=== PATIENT | female | born 1950 | race Caucasian/White ===

== ENCOUNTER 2017-01-14 13:42 | Emergency (ER) | payer MEDICAID ==
[~2017-01-14] VITALS: Ht 157.5 cm; Wt 88.3 kg
[~2017-01-14 13:42] MED LIST: ADULT ASA81 M1 OR; ANTIVERT PO; BACTRIM DS1 TAB PO; CADUET10 MG/20 M OR; CELEBREX200 MG OR; CELEBREX200 MG PO; CIPROFLOXACN500 MG PO; CLONIDINE0.1 MG PO; LISINOPRIL10 MG PO; LISINOPRIL20 MG PO; MELOXICAM15 MG PO; METRONIDAZOL500 MG PO; MIRALAX3350 N1 PO; NAPROSYN500 MG PO; NAPROXEN250 MG PO; PREVACID30 M1 OR; PROTONIX40 M2 PO; SIMVASTATIN20 MG PO; TRAMADOL HCL50 MG PO; ULTRAM50 M1 PO; ULTRAM50 MG OR; VICODIN HP1 TA1 PO; XANAX0.25 MG PO; ZITHROMAX250 MG PO; ZOFRAN ODT8 MG PO
[2017-01-14] MEDS ORDERED: AMLODIPINE BESYL5 MG PO (14:38)
[2017-01-14] MEDS ORDERED: ATENOLOL50 MG PO (14:38)
[2017-01-14] MEDS ORDERED: LEVOTHYROXINE200 MCG PO (14:39)
[2017-01-14] MEDS ORDERED: RANITIDINE150 M1 PO (14:39)
[2017-01-14] MEDS ORDERED: ADLT ASA LOW81 MG PO (14:40)
[2017-01-14] MEDS ORDERED: PREMARIN0.3 MG PO (14:43)
[2017-01-14] MEDS ORDERED: SIMVASTATIN20 MG PO (14:44)
[2017-01-14 14:59] LABS: URINE BILIRUBIN - DIPSTICK NEGATIVE (NEGATIVE); URINE BLOOD DIPSTICK NEGATIVE (NEGATIVE); URINE COLOR YELLOW; URINE GLUCOSE - DIPSTICK NEGATIVE (NEGATIVE); URINE KETONE NEGATIVE (NEGATIVE); URINE NITRITE - DIPSTICK NEGATIVE (Negative); URINE PH 5.5 (4.5-8.0); URINE PROTEIN - DIPSTICK NEGATIVE (NEG-TRACE); URINE SPECIFIC GRAVITY <=1.005; URINE UROBILINOGEN - DIPSTICK 0.2 E.U./dL (0.2)
[2017-01-14 15:01] LABS: URINE LEUK ESTERASE SMALL (NEGATIVE)
[2017-01-14 15:02] LABS: URINE CLARITY TURBID
[2017-01-14 15:20] LABS: URINE SQUAMOUS EPITHELIAL CELL FEW EPI/hpf (0-FEW)
[2017-01-14] MEDS ORDERED: FLEXERIL PO (16:03)
[2017-01-14] MEDS ORDERED: ULTRAM50 M1 PO (16:03)
[2017-01-14] MEDS ORDERED: CIPROFLOXACN500 MG PO (16:03)
[2017-01-14 16:10] VITALS: BP 144/84
== END 2017-01-14 16:10 | disposition home or self-care (01) | DRG 563 ==
LOC: ED 13:42
PROVIDERS: Emergency Medicine
DX: S39.012A Strain of muscle, fascia and tendon of lower back, initial encounter (principal); M51.36 Other intervertebral disc degeneration, lumbar region

== ENCOUNTER 2017-03-18 11:42 | Observation (INO) | payer MEDICAID ==
[~2017-03-18] VITALS: Ht 157.5 cm; Wt 85.0 kg
[~2017-03-18 11:42] MED LIST changes: +ADLT ASA LOW81 MG PO; +AMLODIPINE BESYL5 MG PO; +ATENOLOL50 MG PO; +FLEXERIL PO; +LEVOTHYROXINE200 MCG PO; +PREMARIN0.3 MG PO; +RANITIDINE150 M1 PO
[2017-03-18] MEDS ORDERED: LIPITOR80 M1 PO (11:56)
[2017-03-18] MEDS ORDERED: MELOXICAM7.5 MG PO (11:57)
[2017-03-18] MEDS ORDERED: MAXZIDE-2537.5 MG/TA PO (11:58)
[2017-03-18 12:35] LABS: HEMATOCRIT 42.6 % (37.0-47.0); IMMATURE GRANULOCYTES 0.4 % (0.0-1.0); MEAN CORPUSCULAR HGB 29.9 pG CALC (26.0-32.0); MEAN CORPUSCULAR HGB CONC 32.9 g/L CALC (32.0-36.0); NEUT# 7.05 thou/uL (2.00-7.15); RED BLOOD COUNT 4.68 mill/uL (4.20-5.60); RED CELL DISTRI WIDTH 13.8 % (11.5-15.5)
[2017-03-18 12:47] LABS: ALBUMIN 4.4 g/dL (3.2-5.0); ALKALINE PHOSPHATASE 146 u/l (38-126); ANION GAP 17 (6-22 (CALC)); BILIRUBIN, TOTAL 0.7 mg/dL (0.0-1.4); BUN 36 mg/dL (8-23); BUN/CREATININE RATIO 17 (12-20 (CALC)); CALCIUM 9.3 mg/dL (8.4-10.2); CARBON DIOXIDE 22 mmol/l (22-30); CHLORIDE 103 mmol/l (95-108); CREATININE 2.1 mg/dL (0.5-1.0); GFR 24 ML/MIN (>=60 (CALC)); GFR FOR AFR.AMER. 29 ML/MIN (>=60 (CALC)); GLUCOSE 120 mg/dL (82-115); POTASSIUM 4.4 mmol/l (3.5-5.1); SGOT/AST 24 u/l (9-36); SGPT/ALT 37 u/l (11-66); SODIUM 137 mmol/l (137-146); TOTAL PROTEIN 7.6 g/dL (6.3-8.2)
[2017-03-18 12:58] LABS: MYOGLOBIN 92 ng/mL (0 - 62)
[2017-03-18 18:22] VITALS: BP 148/79
[2017-03-19 00:42] VITALS: BP 101/64
[2017-03-19 04:02] VITALS: BP 98/57
[2017-03-19 07:11] LABS: HEMATOCRIT 38.6 % (37.0-47.0); HEMOGLOBIN 12.7 g/dl (12.0-16.0); IMMATURE GRANULOCYTES 0.1 % (0.0-1.0); MEAN CELL VOLUME 90.8 fL CALC (80.0-100.0); MEAN CORPUSCULAR HGB 29.9 pG CALC (26.0-32.0); MEAN CORPUSCULAR HGB CONC 32.9 g/L CALC (32.0-36.0); NEUT# 4.52 thou/uL (2.00-7.15); RED BLOOD COUNT 4.25 mill/uL (4.20-5.60); RED CELL DISTRI WIDTH 13.7 % (11.5-15.5)
[2017-03-19 07:23] LABS: CALCIUM 8.8 mg/dL (8.4-10.2); CREATININE 1.2 mg/dL (0.5-1.0); MAGNESIUM 1.9 mg/dL (1.6-2.3)
[2017-03-19 08:22] VITALS: BP 106/70
[2017-03-19 11:16] VITALS: BP 100/60; BP 98/60
[2017-03-19 15:33] VITALS: BP 109/63
== END 2017-03-19 18:00 | disposition home or self-care (01) | DRG 684 ==
LOC: ENPENDDIS → ED 11:42 → ED-I 15:05 → ED 15:29 → MS2 15:30
PROVIDERS: Emergency Medicine; ADMIT Internal Medicine; ATTEND Internal Medicine
DX: N17.9 Acute kidney failure, unspecified (principal); I95.9 Hypotension, unspecified; I12.9 Hypertensive chronic kidney disease with stage 1 through stage 4 chronic kidney disease, or unspecified chronic kidney disease; N18.3 Chronic kidney disease, stage 3 (moderate); E03.9 Hypothyroidism, unspecified; E78.5 Hyperlipidemia, unspecified; R00.1 Bradycardia, unspecified; T39.395A Adverse effect of other nonsteroidal anti-inflammatory drugs [NSAID], initial encounter
CPT/HCPCS: G0378

== ENCOUNTER 2017-10-07 15:36 | Emergency (ER) | payer MEDICARE, MEDICAID ==
[~2017-10-07] VITALS: Ht 157.5 cm; Wt 88.0 kg
[~2017-10-07 15:36] MED LIST changes: +LIPITOR80 M1 PO; +MAXZIDE-2537.5 MG/TA PO; +MELOXICAM7.5 MG PO
[2017-10-07] MEDS ORDERED: CHERATUSSIN PO (16:54)
[2017-10-07] MEDS ORDERED: TRAZODONE100 MG PO (16:54)
[2017-10-07 17:01] VITALS: BP 138/70
== END 2017-10-07 17:00 | disposition home or self-care (01) ==
LOC: ED 15:36
DX: R05 Cough (principal); G47.00 Insomnia, unspecified; I10 Essential (primary) hypertension; E78.00 Pure hypercholesterolemia, unspecified

== ENCOUNTER 2017-12-11 14:59 | Emergency (ER) | payer MEDICARE, MEDICAID ==
[~2017-12-11] VITALS: Ht 157.5 cm; Wt 84.1 kg
[~2017-12-11 14:59] MED LIST changes: +CHERATUSSIN PO; +TRAZODONE100 MG PO
[2017-12-11 16:13] LABS: HEMATOCRIT 44.5 % (37.0-47.0); HEMOGLOBIN 14.6 g/dl (12.0-16.0); IMMATURE GRANULOCYTES 0.3 % (0.0-1.0); MEAN CELL VOLUME 88.8 fL CALC (80.0-100.0); MEAN CORPUSCULAR HGB 29.1 pG CALC (26.0-32.0); MEAN CORPUSCULAR HGB CONC 32.8 g/L CALC (32.0-36.0); NEUT# 4.65 thou/uL (2.00-7.15); RED BLOOD COUNT 5.01 mill/uL (4.20-5.60); RED CELL DISTRI WIDTH 13.9 % (11.5-15.5)
[2017-12-11 16:20] LABS: ALBUMIN 3.9 g/dL (3.2-5.0); ALKALINE PHOSPHATASE 165 u/l (38-126); ANION GAP 15 (6-22 (CALC)); BILIRUBIN, TOTAL 0.6 mg/dL (0.0-1.4); BUN 12 mg/dL (8-23); BUN/CREATININE RATIO 11 (12-20 (CALC)); CARBON DIOXIDE 25 mmol/l (22-30); CHLORIDE 103 mmol/l (95-108); CREATININE 1.1 mg/dL (0.5-1.0); GFR 50 ML/MIN (>=60 (CALC)); GFR FOR AFR.AMER. 60 ML/MIN (>=60 (CALC)); POTASSIUM 3.9 mmol/l (3.5-5.1); SGPT/ALT 34 u/l (11-66); SODIUM 140 mmol/l (137-146); TOTAL PROTEIN 6.8 g/dL (6.3-8.2)
[2017-12-11 16:27] LABS: SGOT/AST 24 u/l (9-36)
[2017-12-11 16:54] VITALS: BP 143/70
== END 2017-12-11 16:59 | disposition home or self-care (01) ==
LOC: ED 14:59
PROVIDERS: Emergency Medicine
DX: R42 Dizziness and giddiness (principal); I10 Essential (primary) hypertension; E78.00 Pure hypercholesterolemia, unspecified; K21.9 Gastro-esophageal reflux disease without esophagitis; E07.9 Disorder of thyroid, unspecified; I49.8 Other specified cardiac arrhythmias

== ENCOUNTER 2018-03-11 13:04 | Observation (INO) | payer MEDICARE, MEDICAID ==
[~2018-03-11] VITALS: Ht 157.5 cm; Wt 87.8 kg
--- NOTE | 2018-03-11 13:04 | NUR ---
TO ROOM 13 VIA STRETCHER BY EMS. ALERT. TALKATIVE. C/O IN SEPTEMBER, HAVING MONEY ISSUES, AND FATHER'S DAY IS TOMORROW. IS NOT HERE TO CELEBRATE THE HOLIDAY
[2018-03-11] MEDS ORDERED: LOSARTAN POT50 MG PO (13:15)
[2018-03-11] MEDS ORDERED: POTASSIUM CHLO10 MEQ PO (13:16)
--- NOTE | 2018-03-11 13:25 | NUR ---
PT STATES HE FELT DIZZY WHILE VACUMING HOUSE TODAY. PT STATES SHE IS UNDER A LOT OF STRESS. STATES HER IN SEPTEMBER AND THIS IS THE 1ST FATHERS DAY W/OUT HIM. ALSO STATES A FRIEND IS STAYING WITH HER AND SHE CAUSES A LOT OF PROBLEMS. PT DENIES PAIN. DENIES HX OF AFIB. BREATHING IS EVEN/UNLABORED, LUNG SOUNDS CLEAR. PULSES STRONG/EVEN. ABD SOFT/NONTENDER. C/O DIARRHEA LAST WEEK. DENIES N/V/D AT THIS TIME.
[2018-03-11 13:33] LABS: HEMATOCRIT 44.1 % (37.0-47.0); HEMOGLOBIN 14.5 g/dl (12.0-16.0); IMMATURE GRANULOCYTES 0.3 % (0.0-1.0); MEAN CORPUSCULAR HGB 29.6 pG CALC (26.0-32.0); MEAN CORPUSCULAR HGB CONC 32.9 g/L CALC (32.0-36.0); NEUT# 7.57 thou/uL (2.00-7.15); RED BLOOD COUNT 4.9 mill/uL (4.20-5.60); RED CELL DISTRI WIDTH 13.3 % (11.5-15.5)
[2018-03-11 13:50] VITALS: BP 124/76
[2018-03-11 14:09] LABS: ANION GAP 15 (6-22 (CALC)); BUN 31 mg/dL (8-23); BUN/CREATININE RATIO 19 (12-20 (CALC)); CARBON DIOXIDE 25 mmol/l (22-30); CHLORIDE 101 mmol/l (95-108); CREATININE 1.6 mg/dL (0.5-1.0); GFR 32 ML/MIN (>=60 (CALC)); GFR FOR AFR.AMER. 39 ML/MIN (>=60 (CALC)); POTASSIUM 4.3 mmol/l (3.5-5.1); SODIUM 136 mmol/l (137-146)
--- NOTE | 2018-03-11 14:26 | NUR ---
PT UP TO BATHROOM FOR UA SAMPLE. PT RECONNECTED TO MONITOR. WILL CONTINUE TO MONITOR. DISPO PENDING TEST RESULTS.
[2018-03-11 14:28] LABS: URINE BLOOD DIPSTICK NEGATIVE (NEGATIVE); URINE COLOR YELLOW; URINE GLUCOSE - DIPSTICK NEGATIVE (NEGATIVE); URINE KETONE TRACE mg/dL (NEGATIVE); URINE LEUK ESTERASE TRACE (NEGATIVE); URINE NITRITE - DIPSTICK NEGATIVE (Negative); URINE PROTEIN - DIPSTICK NEGATIVE (NEG-TRACE); URINE SPECIFIC GRAVITY >=1.030; URINE UROBILINOGEN - DIPSTICK 0.2 E.U./dL (0.2)
[2018-03-11 14:29] LABS: URINE BILIRUBIN - DIPSTICK MODERATE (NEGATIVE); URINE CLARITY CLEAR
--- NOTE | 2018-03-11 15:05 | NUR ---
SBAR PRINTED TO FLOOR
--- NOTE | 2018-03-11 15:13 | NUR ---
PT STATES SHE WANTS TO BE ADMITTED FOR AT LEAST 1 NIGHT SO SHE CAN GET AWAY FROM HER HOUSE FOR A LITTLE BIT.
--- NOTE | 2018-03-11 15:40 | NUR ---
Admission Note Report Given to: RAÚL Transported by: S Wheelchair Stretcher Transported with: X Nurse Transporter X Patent IV O2 X Personal Computer Specialist ON TELE
[2018-03-11 15:50] VITALS: BP 122/62; BP 124/66
--- NOTE | 2018-03-11 15:50 | NUR ---
PT TRANSFERED TO [facility] [place] [facility] BY WITH TELE IN STABLE CONDITION. ALL BELONGINGS SENT WITH PT.
--- NOTE | 2018-03-11 15:55 | NUR ---
PT ARRIVED TO [facility] VIA STRETCHER ACCOMPANIED BY ER NURST. PT ALERT AND ORIENTED X3, VOICES NO NEEDS OR COMPLANTS AT THIS TIME. PT HAD LOSS OF SPOUSE IN SEPTEMBER OF 2017. PT TEARFUL AND EXPRESSED HER DIFFICULTIES WITH THE LOSS OF HER , HER MEDICAL ISSUES, HER FINANCIAL ISSUES, AND LIVING SITUATION. WILL CONSULT CASE MANAGEMENT FOR RESOURCES. IV FLUIDS INITIATED, PT STABLE, ADMISSION ASSESSMENT COMPLETED. ORIENTED TO ROOM AND CALL LIGHT. CALL LIGHT IN REACH,CONTINUE TO MONITOR.
[2018-03-11 16:09] LABS: ALBUMIN 4.1 g/dL (3.2-5.0); BILIRUBIN, TOTAL 0.3 mg/dL (0.0-1.4); TOTAL PROTEIN 7.4 g/dL (6.3-8.2)
[2018-03-11 19:06] VITALS: BP 108/69
--- NOTE | 2018-03-11 19:44 | NUR ---
PT RESTING IN BED WATCHING TV. RESP EVEN AND UNLABORED. PT DENIES PAIN OR DISCOMFORT. TELE ON. LUNGS CLEAR. ABD SOFT, ACTIVE BOWEL SOUNDS. EDEMA TO ANKLES BILAT, PT ENCORUAGED TO ELEVATE. PEDAL PULSES PALPATED BILAT. IV LAC PATENT; NO REDNESS OR EDEMA NOTED. SAFETY PRECAUTIONS REINFORCED. FREQUENT ROUNDS MADE. CALL LIGHT WITHIN REACH.
[2018-03-11 23:20] VITALS: BP 110/68
[2018-03-11 23:22] VITALS: BP 138/92
[2018-03-11 23:25] VITALS: BP 133/88
--- NOTE | 2018-03-12 00:15 | NUR ---
RESP EVEN AND UNLABORED. NO DISCOMFORT NOTED. TELE IN PLACE. IV PATENT; NO REDNESS OR EDEMA NOTED. CALL LIGHT WITHIN REACH.
--- NOTE | 2018-03-12 04:00 | NUR ---
ASSESSMENT UNCHANGED; RESP EVEN AND UNLABORED. NO DISTRESS NOTED. TELE IN PLACE. IV PATENT; NO REDNESS OR EDEMA NOTED. CALL LIGHT WITHIN REACH.
[2018-03-12 04:20] VITALS: BP 161/81
[2018-03-12 06:18] LABS: HEMATOCRIT 42.1 % (37.0-47.0); HEMOGLOBIN 13.6 g/dl (12.0-16.0); IMMATURE GRANULOCYTES 0.3 % (0.0-1.0); MEAN CELL VOLUME 90.3 fL CALC (80.0-100.0); MEAN CORPUSCULAR HGB 29.2 pG CALC (26.0-32.0); MEAN CORPUSCULAR HGB CONC 32.3 g/L CALC (32.0-36.0); NEUT# 2.93 thou/uL (2.00-7.15); RED BLOOD COUNT 4.66 mill/uL (4.20-5.60); RED CELL DISTRI WIDTH 13.3 % (11.5-15.5)
[2018-03-12 06:33] LABS: ANION GAP 13 (6-22 (CALC)); BUN 24 mg/dL (8-23); BUN/CREATININE RATIO 23 (12-20 (CALC)); CARBON DIOXIDE 23 mmol/l (22-30); CHLORIDE 105 mmol/l (95-108); GFR 56 ML/MIN (>=60 (CALC)); GFR FOR AFR.AMER. > 60 ML/MIN (>=60 (CALC)); POTASSIUM 4.4 mmol/l (3.5-5.1); SODIUM 136 mmol/l (137-146)
--- NOTE | 2018-03-12 07:31 | NUR ---
PT RESTING IN BED WITH EYES CLOSED, NO SIGNS OF DISTRESS NOTED, RESP EVEN AND UNLABORED. CALL LIGHT IN REACH,CONTINUE TO MONITOR.
[2018-03-12 07:52] VITALS: BP 125/75
--- NOTE | 2018-03-12 07:52 | NUR ---
PT RESTING IN BED EATING BREAKFAST, NO SIGNS OF DISTRESS NOTED, RESP EVEN AND UNLABORED. ASSESSMENT COMPLETED, VOICES NO NEEDS OR COMPLAINTS AT THIS TIME. CALL LIGHT IN REACH,CONTINUE TO MONITOR.
[2018-03-12 11:53] VITALS: BP 120/75; BP 122/85
[2018-03-12 11:54] VITALS: BP 123/86
[2018-03-12] MEDS ORDERED: LEVOTHYROXIN75 MC1 PO (14:29)
--- NOTE | 2018-03-12 15:42 | NUR ---
Discharge instructions given. Patient verbalizes understanding of same. Discharged in stable condition via Wheelchair to Home with staff. All belongings sent with pt.
== END 2018-03-12 15:42 | disposition home or self-care (01) ==
LOC: ED 13:04 → ED-I 14:51 → ED 15:04 → MS2 15:05
PROVIDERS: Family Medicine; Nurse Practitioner; ADMIT Internal Medicine; ATTEND Internal Medicine
DX: R55 Syncope and collapse (principal); K21.9 Gastro-esophageal reflux disease without esophagitis; E78.00 Pure hypercholesterolemia, unspecified; I12.9 Hypertensive chronic kidney disease with stage 1 through stage 4 chronic kidney disease, or unspecified chronic kidney disease; N18.3 Chronic kidney disease, stage 3 (moderate); E03.9 Hypothyroidism, unspecified; I95.9 Hypotension, unspecified

== ENCOUNTER 2018-04-03 12:33 | Emergency (ER) | payer MEDICARE, MEDICAID ==
[~2018-04-03] VITALS: Ht 157.5 cm; Wt 85.0 kg
[~2018-04-03 12:33] MED LIST changes: +LEVOTHYROXIN75 MC1 PO; +LOSARTAN POT50 MG PO; +POTASSIUM CHLO10 MEQ PO
[2018-04-03] MEDS ORDERED: LEVOTHYROXIN150 MC1 PO (12:47)
[2018-04-03] MEDS ORDERED: HYZAAR1 TA1 PO (12:48)
[2018-04-03 13:43] VITALS: BP 138/86
== END 2018-04-03 13:43 | disposition home or self-care (01) ==
LOC: ED 12:33
DX: S90.32XA Contusion of left foot, initial encounter (principal); S90.812A Abrasion, left foot, initial encounter; W22.8XXA Striking against or struck by other objects, initial encounter; Y93.E9 Activity, other interior property and clothing maintenance; Y92.000 Kitchen of unspecified non-institutional (private) residence as the place of occurrence of the external cause

== ENCOUNTER 2018-07-08 13:20 | Emergency (ER) | payer MEDICARE, MEDICAID ==
[~2018-07-08] VITALS: Ht 157.5 cm; Wt 74.0 kg
[~2018-07-08 13:20] MED LIST changes: +HYZAAR1 TA1 PO; +LEVOTHYROXIN150 MC1 PO
[2018-07-08] MEDS ORDERED: FLONASE AL50 MCG/ACT IN (14:27)
[2018-07-08] MEDS ORDERED: LEVOTHYROXIN125 MCG PO (14:28)
[2018-07-08] MEDS ORDERED: POT CHLORIDE20 ME3 PO (14:29)
[2018-07-08] MEDS ORDERED: CLEOCIN300 M1 PO (14:30)
[2018-07-08] MEDS ORDERED: MAXZIDE-2537.5 MG/TA PO (14:32)
[2018-07-08] MEDS ORDERED: MOTRIN800 MG PO (14:35)
[2018-07-08] MEDS ORDERED: METOPROL TAR25 MG PO (14:35)
[2018-07-08 15:04] LABS: INFLUENZA A NONE DETECTED (NONE DETECT); INFLUENZA B NONE DETECTED (NONE DETECT)
[2018-07-08] MEDS ORDERED: ZITHROMAX250 MG PO (15:10)
[2018-07-08 15:15] VITALS: BP 107/71
== END 2018-07-08 15:27 | disposition home or self-care (01) ==
LOC: ED 13:20
PROVIDERS: Emergency Medicine
DX: J06.9 Acute upper respiratory infection, unspecified (principal); J02.9 Acute pharyngitis, unspecified; I10 Essential (primary) hypertension; K21.9 Gastro-esophageal reflux disease without esophagitis; E03.9 Hypothyroidism, unspecified

== ENCOUNTER 2018-07-11 10:46 | Observation (INO) | payer MEDICARE, MEDICAID ==
[~2018-07-11] VITALS: Ht 157.5 cm; Wt 87.5 kg
[~2018-07-11 10:46] MED LIST changes: +CLEOCIN300 M1 PO; +FLONASE AL50 MCG/ACT IN; +LEVOTHYROXIN125 MCG PO; +METOPROL TAR25 MG PO; +MOTRIN800 MG PO; +POT CHLORIDE20 ME3 PO
[2018-07-11 11:18] LABS: HEMATOCRIT 44.1 % (37.0-47.0); HEMOGLOBIN 14.6 g/dl (12.0-16.0); IMMATURE GRANULOCYTES 0.3 % (0.0-5.0); MEAN CELL VOLUME 89.6 fL CALC (80.0-100.0); MEAN CORPUSCULAR HGB 29.7 pG CALC (26.0-32.0); MEAN CORPUSCULAR HGB CONC 33.1 g/L CALC (32.0-36.0); NEUT# 2.38 thou/uL (2.00-7.15); RED BLOOD COUNT 4.92 mill/uL (4.20-5.60); RED CELL DISTRI WIDTH 13.3 % (11.5-15.5)
[2018-07-11 11:38] LABS: ANION GAP 15 (6-22 (CALC)); BUN 23 mg/dL (8-23); BUN/CREATININE RATIO 21 (12-20 (CALC)); CARBON DIOXIDE 25 mmol/l (22-30); CHLORIDE 105 mmol/l (95-108); CREATININE 1.1 mg/dL (0.5-1.0); GFR 50 ML/MIN (>=60 (CALC)); GFR FOR AFR.AMER. 60 ML/MIN (>=60 (CALC)); POTASSIUM 4.1 mmol/l (3.5-5.1); SODIUM 141 mmol/l (137-146)
[2018-07-11 14:04] VITALS: BP 167/111
[2018-07-11 17:16] VITALS: BP 140/81
[2018-07-11 19:42] VITALS: BP 135/87
[2018-07-12 03:56] VITALS: BP 101/69
[2018-07-12 05:08] LABS: HEMATOCRIT 43.8 % (37.0-47.0); HEMOGLOBIN 14.5 g/dl (12.0-16.0); IMMATURE GRANULOCYTES 0.2 % (0.0-5.0); MEAN CELL VOLUME 89.6 fL CALC (80.0-100.0); MEAN CORPUSCULAR HGB 29.7 pG CALC (26.0-32.0); MEAN CORPUSCULAR HGB CONC 33.1 g/L CALC (32.0-36.0); NEUT# 2.16 thou/uL (2.00-7.15); RED BLOOD COUNT 4.89 mill/uL (4.20-5.60); RED CELL DISTRI WIDTH 13.2 % (11.5-15.5)
[2018-07-12 05:21] LABS: ALBUMIN 3.7 g/dL (3.2-5.0); ALKALINE PHOSPHATASE 153 u/l (38-126); ANION GAP 14 (6-22 (CALC)); BILIRUBIN, TOTAL 0.3 mg/dL (0.0-1.4); BUN 22 mg/dL (8-23); BUN/CREATININE RATIO 23 (12-20 (CALC)); CARBON DIOXIDE 25 mmol/l (22-30); CHLORIDE 104 mmol/l (95-108); CREATININE 0.9 mg/dL (0.5-1.0); GFR > 60 ML/MIN (>=60 (CALC)); GFR FOR AFR.AMER. > 60 ML/MIN (>=60 (CALC)); MAGNESIUM 1.7 mg/dL (1.6-2.3); POTASSIUM 3.9 mmol/l (3.5-5.1); SGOT/AST 28 u/l (9-36); SODIUM 139 mmol/l (137-146); TOTAL PROTEIN 7.1 g/dL (6.3-8.2)
[2018-07-12 07:55] VITALS: BP 138/89
[2018-07-12 11:28] VITALS: BP 119/70
[2018-07-12 15:50] VITALS: BP 108/70
== END 2018-07-12 15:47 | disposition home or self-care (01) ==
LOC: ED 10:46 → ED-I 11:55 → ED 12:11 → MS2 12:12
PROVIDERS: Family Medicine; ADMIT Internal Medicine Nephrology; ATTEND Internal Medicine Nephrology
DX: M94.0 Chondrocostal junction syndrome [Tietze] (principal); J06.9 Acute upper respiratory infection, unspecified; I12.9 Hypertensive chronic kidney disease with stage 1 through stage 4 chronic kidney disease, or unspecified chronic kidney disease; N18.3 Chronic kidney disease, stage 3 (moderate); E66.9 Obesity, unspecified; F41.9 Anxiety disorder, unspecified; E78.5 Hyperlipidemia, unspecified; E03.9 Hypothyroidism, unspecified; K21.9 Gastro-esophageal reflux disease without esophagitis; S39.012A Strain of muscle, fascia and tendon of lower back, initial encounter; X50.9XXA Other and unspecified overexertion or strenuous movements or postures, initial encounter; Z68.35 Body mass index [BMI] 35.0-35.9, adult

== ENCOUNTER 2018-07-25 21:03 | Emergency (ER) | payer MEDICARE, MEDICAID ==
[~2018-07-25] VITALS: Ht 157.5 cm; Wt 90.0 kg
[2018-07-25 21:36] LABS: HEMATOCRIT 42.9 % (37.0-47.0); HEMOGLOBIN 14.2 g/dl (12.0-16.0); IMMATURE GRANULOCYTES 0.5 % (0.0-5.0); MEAN CELL VOLUME 89.9 fL CALC (80.0-100.0); MEAN CORPUSCULAR HGB 29.8 pG CALC (26.0-32.0); MEAN CORPUSCULAR HGB CONC 33.1 g/L CALC (32.0-36.0); NEUT# 6.78 thou/uL (2.00-7.15); RED BLOOD COUNT 4.77 mill/uL (4.20-5.60); RED CELL DISTRI WIDTH 13.3 % (11.5-15.5)
[2018-07-25 21:51] LABS: ALKALINE PHOSPHATASE 145 u/l (38-126); ANION GAP 15 (6-22 (CALC)); BILIRUBIN, TOTAL 0.2 mg/dL (0.0-1.4); BUN 20 mg/dL (8-23); BUN/CREATININE RATIO 20 (12-20 (CALC)); CARBON DIOXIDE 24 mmol/l (22-30); CHLORIDE 105 mmol/l (95-108); GFR 55 ML/MIN (>=60 (CALC)); GFR FOR AFR.AMER. > 60 ML/MIN (>=60 (CALC)); SGOT/AST 28 u/l (9-36); SODIUM 140 mmol/l (137-146); TOTAL PROTEIN 7.2 g/dL (6.3-8.2)
[2018-07-25 22:06] VITALS: BP 112/77
== END 2018-07-25 22:16 | disposition home or self-care (01) ==
LOC: ED 21:03
PROVIDERS: Emergency Medicine
DX: F41.9 Anxiety disorder, unspecified (principal); I10 Essential (primary) hypertension; E78.00 Pure hypercholesterolemia, unspecified

== ENCOUNTER 2018-08-05 11:48 | Emergency (ER) | payer MEDICARE, MEDICAID ==
[~2018-08-05] VITALS: Ht 157.5 cm; Wt 80.0 kg
[2018-08-05 12:37] LABS: HEMATOCRIT 41.2 % (37.0-47.0); HEMOGLOBIN 13.7 g/dl (12.0-16.0); IMMATURE GRANULOCYTES 0.3 % (0.0-5.0); MEAN CELL VOLUME 89.8 fL CALC (80.0-100.0); MEAN CORPUSCULAR HGB 29.8 pG CALC (26.0-32.0); MEAN CORPUSCULAR HGB CONC 33.3 g/L CALC (32.0-36.0); NEUT# 6.43 thou/uL (2.00-7.15); RED BLOOD COUNT 4.59 mill/uL (4.20-5.60); RED CELL DISTRI WIDTH 13.9 % (11.5-15.5)
[2018-08-05 12:49] LABS: ALBUMIN 4.2 g/dL (3.2-5.0); ALKALINE PHOSPHATASE 137 u/l (38-126); ANION GAP 14 (6-22 (CALC)); BILIRUBIN, TOTAL 0.5 mg/dL (0.0-1.4); BUN 28 mg/dL (8-23); BUN/CREATININE RATIO 16 (12-20 (CALC)); CARBON DIOXIDE 25 mmol/l (22-30); CHLORIDE 104 mmol/l (95-108); CREATININE 1.8 mg/dL (0.5-1.0); GFR 28 ML/MIN (>=60 (CALC)); GFR FOR AFR.AMER. 34 ML/MIN (>=60 (CALC)); POTASSIUM 4.2 mmol/l (3.5-5.1); SGOT/AST 39 u/l (9-36); SODIUM 139 mmol/l (137-146); TOTAL PROTEIN 7.7 g/dL (6.3-8.2)
[2018-08-05 14:13] LABS: URINE BILIRUBIN - DIPSTICK NEGATIVE (NEGATIVE); URINE BLOOD DIPSTICK NEGATIVE (NEGATIVE); URINE COLOR YELLOW; URINE GLUCOSE - DIPSTICK NEGATIVE (NEGATIVE); URINE KETONE NEGATIVE (NEGATIVE); URINE LEUK ESTERASE TRACE (Negative); URINE NITRITE - DIPSTICK POSITIVE (Negative); URINE PROTEIN - DIPSTICK NEGATIVE (NEG-TRACE); URINE SPECIFIC GRAVITY 1.025; URINE UROBILINOGEN - DIPSTICK 0.2 E.U./dL (0.2)
[2018-08-05 14:15] LABS: URINE CLARITY TURBID
[2018-08-05 14:23] LABS: URINE BACTERIA MODERATE hpf; URINE SQUAMOUS EPITHELIAL CELL FEW EPI/hpf (0-FEW)
[2018-08-05 14:29] LABS: BARBITURATES NEGATIVE (NEGATIVE); METHADONE NEGATIVE (NEGATIVE); OXCYCODONE NEGATIVE (NEGATIVE); TETRAHYDROCANNABIONOL NEGATIVE (NEGATIVE); TRICYLIC ANTIDEPRESSANTS NEGATIVE (NEGATIVE)
[2018-08-05 14:30] LABS: COCAINE NEGATIVE (NEGATIVE)
[2018-08-05] MEDS ORDERED: BACTRIM DS1 TAB PO (14:48)
[2018-08-05 15:23] VITALS: BP 136/69
== END 2018-08-05 15:39 | disposition home or self-care (01) ==
LOC: ED 11:48
PROVIDERS: Emergency Medicine
DX: R42 Dizziness and giddiness (principal); N39.0 Urinary tract infection, site not specified; R78.4 Finding of other drugs of addictive potential in blood; I12.9 Hypertensive chronic kidney disease with stage 1 through stage 4 chronic kidney disease, or unspecified chronic kidney disease; N18.9 Chronic kidney disease, unspecified; K21.9 Gastro-esophageal reflux disease without esophagitis; E03.9 Hypothyroidism, unspecified

== ENCOUNTER 2018-08-29 12:37 | Emergency (ER) | payer MEDICARE, MEDICAID ==
[~2018-08-29] VITALS: Ht 157.5 cm; Wt 87.0 kg
[2018-08-29 13:05] VITALS: BP 143/72
== END 2018-08-29 13:05 | disposition home or self-care (01) ==
LOC: ED 12:37
DX: S80.02XA Contusion of left knee, initial encounter (principal); S60.211A Contusion of right wrist, initial encounter; W01.0XXA Fall on same level from slipping, tripping and stumbling without subsequent striking against object, initial encounter; Y93.01 Activity, walking, marching and hiking; Y92.232 Corridor of hospital as the place of occurrence of the external cause

== ENCOUNTER 2018-11-01 11:42 | Emergency (ER) | payer MEDICARE ==
[~2018-11-01] VITALS: Ht 157.5 cm; Wt 80.0 kg
[2018-11-01] MEDS ORDERED: SYNTHROID175 MCG PO (12:26)
[2018-11-01] MEDS ORDERED: GABAPENTIN100 MG PO (12:26)
[2018-11-01] MEDS ORDERED: AMLODIPINE BESY10 MG PO (12:27)
[2018-11-01] MEDS ORDERED: LOSARTAN POT50 MG PO (12:28)
[2018-11-01 12:42] VITALS: BP 129/74
== END 2018-11-01 12:42 | disposition home or self-care (01) ==
LOC: ED 11:42
DX: S63.92XA Sprain of unspecified part of left wrist and hand, initial encounter (principal); S90.32XA Contusion of left foot, initial encounter; E78.00 Pure hypercholesterolemia, unspecified; K21.9 Gastro-esophageal reflux disease without esophagitis; E03.9 Hypothyroidism, unspecified; I12.9 Hypertensive chronic kidney disease with stage 1 through stage 4 chronic kidney disease, or unspecified chronic kidney disease; N18.9 Chronic kidney disease, unspecified; W01.0XXA Fall on same level from slipping, tripping and stumbling without subsequent striking against object, initial encounter; Y93.89 Activity, other specified; Y92.481 Parking lot as the place of occurrence of the external cause

== ENCOUNTER 2019-02-26 13:34 | Emergency (ER) | payer MEDICARE, MEDICAID ==
[~2019-02-26] VITALS: Ht 157.5 cm; Wt 87.3 kg
[~2019-02-26 13:34] MED LIST changes: +AMLODIPINE BESY10 MG PO; +GABAPENTIN100 MG PO; +SYNTHROID175 MCG PO
[2019-02-26] MEDS ORDERED: PREDNISONE20 MG PO (14:35)
[2019-02-26 14:49] VITALS: BP 151/103
== END 2019-02-26 15:00 | disposition home or self-care (01) ==
LOC: ED 13:34
DX: T63.461A Toxic effect of venom of wasps, accidental (unintentional), initial encounter (principal); Y92.009 Unspecified place in unspecified non-institutional (private) residence as the place of occurrence of the external cause

== ENCOUNTER 2019-10-02 15:51 | Observation (INO) | payer MEDICARE, MEDICAID ==
[~2019-10-02] VITALS: Ht 157.5 cm; Wt 83.2 kg
[~2019-10-02 15:51] MED LIST changes: +PREDNISONE20 MG PO
--- NOTE | 2019-10-02 15:57 | NUR ---
PT TO ROOM VIA EMS
[2019-10-02 16:47] LABS: HEMATOCRIT 42.6 % (37.0-47.0); HEMOGLOBIN 13.8 g/dl (12.0-16.0); IMMATURE GRANULOCYTES 0.3 % (0.0-5.0); MEAN CELL VOLUME 90.3 fL CALC (80.0-100.0); MEAN CORPUSCULAR HGB 29.2 pG CALC (26.0-32.0); MEAN CORPUSCULAR HGB CONC 32.4 g/L CALC (32.0-36.0); NEUT# 3.79 thou/uL (2.00-7.15); RED BLOOD COUNT 4.72 mill/uL (4.20-5.60); RED CELL DISTRI WIDTH 13.9 % (11.5-15.5)
--- NOTE | 2019-10-02 16:57 | NUR ---
PT RESTING ON STRETCHER, STATES HEADACHE IS STARTING TO DECREASE
[2019-10-02 17:15] LABS: ANION GAP 13 (6-22 (CALC)); BUN 21 mg/dL (8-23); BUN/CREATININE RATIO 24 (12-20 (CALC)); CARBON DIOXIDE 23 mmol/l (22-30); CHLORIDE 106 mmol/l (95-108); CREATININE 0.9 mg/dL (0.5-1.0); GFR > 60 ML/MIN (>=60 (CALC)); GFR FOR AFR.AMER. > 60 ML/MIN (>=60 (CALC)); POTASSIUM 3.9 mmol/l (3.5-5.1); SODIUM 137 mmol/l (137-146)
--- NOTE | 2019-10-02 17:57 | NUR ---
PT RESTING ON STRTETCHER, STATES PAIN IS A 4/10
--- NOTE | 2019-10-02 18:57 | NUR ---
PT RESTING ON STRETCHER, NO COMPLAINT STATED AT THIS TIME.
--- NOTE | 2019-10-02 19:11 | NUR ---
REPORT GIVEN TO LUANNE JONES
--- NOTE | 2019-10-02 20:28 | NUR ---
PT GIVEN SANDWICH/ICE/BLANKET. AWAITING ADMIT BED.
--- NOTE | 2019-10-02 20:55 | NUR ---
PHARM STATES ZANTAC OUT OF STOCK. DR. URBAN NOTIFIED AND ORDER FOR PEPCID GIVEN. FAXED TO PHARM.
--- NOTE | 2019-10-02 22:30 | NUR ---
PT RESTING. AWARE OF POTENTIAL ER HOLD. A/O PWD. NAD. VSS.
--- NOTE | 2019-10-03 02:00 | NUR ---
PT UP TO BR TO VOID. NAD.
--- NOTE | 2019-10-03 04:00 | NUR ---
PT SLEEPING. NAD. VSS.
--- NOTE | 2019-10-03 06:20 | NUR ---
PT RESTING. FEELS BETTER ON THE REAL BED. NO OTHER C/O. VSS.
[2019-10-03 08:00] VITALS: BP 174/80
--- NOTE | 2019-10-03 08:44 | NUR ---
PT RESTING QUIETLY ON STRETCHER, UP TO BEDSIDE COMMODE, ALERT/ORIENTED X3, WARM BLANKET GIVEN.
--- NOTE | 2019-10-03 09:32 | NUR ---
DR. WALDROP HERE SPEAKING WITH PT. PT IS TO BE DISCHARGED IF ORTHO VITAL SIGNS ARE GOOD. LAYING HR 75 167/80 SITTING 65 162/83 STANDING 68 178/89 DR. WALDROP LOOKED AT VS AND WILL DISCHARGE. PT IS HAPPY ABOUT DECISION, REMAINS ALERT/ORIENTED X3, SITTING UP ON STRETCHER PLAYING GAME ON PHONE
--- NOTE | 2019-10-03 10:00 | NUR ---
Discharged to: Home Discharged via: Wheelchair Accompanied by: family D/C Condition: stable Diet: as tolerated Diet modification: low sodium Activity: As tolerated Home Health: NONE Follow up appointment: Special instructions: Medications: SEE MEDICATION RECONCILIATION FORM Prescriptions Given: Please notify your physician if you received either one of these vaccinations: Influenza Vaccine - Date: Pneumococcal Vaccine - Date: Patient Education Materials Provided: - Food and Drug Interaction Guide Yes - Anticoagulation Education Booklet Contains the following information: 1. Compliance issues 2. Dietary advice 3. Follow up monitoring 4. Potential for adverse drug reactions and interactions Yes - Smoking Cessation Booklet IF SYMPTOMS WORSEN, OR IF YOU HAVE ADDITIONAL QUESTIONS, PLEASE CONTACT YOUR PERSONAL PHYSICIAN OR SEEK EMERGENCY CARE. CALL YOUR PHYSICIAN IF YOU DO NOT GET RELIEF FROM THE PAIN MEDICATIONS PRESCRIBED, OR IF THE INTENSITY OF PAIN INCREASES, OR IF PAIN IS INTERFERING WITH ACTIVITY OR REST. IF YOU SMOKE, YOU NEED TO QUIT. IT IS GOOD FOR YOU AND EVERYONE AROUND YOU! Your physician and [facility] care about you and your health. The facts are clear. Smoking causes 1 out of 5 deaths in the [place] each year. It is the major preventable cause of emphysema, lung cancer, chronic bronchitis, heart disease and stroke. Quitting is one of the best things you can ever do for yourself and those you love. What better time to quit than now! You've already been cigarette free during your stay. Studies have shown that the first 48 hours of quitting are the toughest. Just a few of the benefits your body begins to experience are blood pressure returns to normal, the carbon monoxide level in your blood drops to normal, your chance of heart attack decreases, and your ability to smell and taste is enhanced. Here are some resources that you may find helpful: [employer] www.lungusa.org www.cancer.org [employer] [place] [employer] of [employer] (Tobacco Prevention and Control Program) www.americanheart.org www.megan.[facility].fl.us Finally don't forget that your doctor may be able to help you. Whichever method you choose will be good for you. IF YOU HAVE A DIAGNOSIS OF CONGESTIVE HEART FAILURE, THERE ARE SEVERAL ADDITIONAL INSTRUCTIONS FOR YOU TO FOLLOW UPON DISCHARGE FROM THE HOSPITAL. Weigh yourself every day and if weight gain is greater than 2 pounds in a day, call your physican. If you experience worsening symptoms such as: Problems with breathing or shortness of breath Ankle/foot/leg swelling Unexplained weight gain greater than 2 pounds Call your physician or come to the emergency room. IF YOU HAVE A DIAGNOSIS OF STROKE, THERE ARE SEVERAL ADDITIONAL INSTRUCTIONS FOR YOU TO FOLLOW: A stroke occurs when something happens to interrupt the steady flow of blood to the brain, like a clot or a burst in a blood vessel. Brain cells quickly begin to . These INCREASE your chance of having a STROKE: * Smoking * High blood pressure * Diabetes * Obesity WARNING SIGNS OR SYMPTOMS: * Sudden weakness on one side of body. * Sudden confusion, trouble speaking or understanding. * Sudden trouble seeing. * Sudden trouble walking or loss of balance. * Sudden severe headache with no known cause. CALL At Any Sign of Stroke. You can beat a stroke. Disabilities can be prevented or limited, but you have must go to the Emergency Department immediately. Go in an Ambulance. Save Time. Be Seen Faster! If you were admitted to the hospital for a stroke After DISCHARGE you must: * Keep ALL follow up appointments. * Take your medications as ordered by your doctor. * Do not take any other drugs without checking with your doctor first. * Do not drive unless your doctor says it is okay. * Call your doctor with any questions or concerns. IF YOU WERE DISCHARGED ON COUMADIN/WARFARIN ANTICOAGULATION THERAPY, THERE ARE SEVERAL ADDITIONAL INSTRUCTIONS FOR YOU TO FOLLOW: Anticoagulants are medications that help prevent blood clots. They are often prescribed for people with certain heart, lung and blood vessel diseases to help prevent heart attacks and strokes. IMPORTANT Anticoagulation medications have been used for many years, but it can be difficult to manage. That's because many factors can affect how they work-including small changes in dose or dose timing, what you eat or drink, other medications and stress. You and your doctor must work closely together to manage this important medication. * Take your medicine EXACTLY as instructed by your doctor. * You must have your blood drawn for PT/INR to monitor your medication. * Do not take any new medications, vitamins or herbal supplements without asking your doctor first. FOODS: * Eat the same amount of foods that contain Vitamin K every day. * Avoid or limit alcohol. * Avoid major changes in diet or notify your doctor first. FOLLOW UP MONITORING: See your physician within one week to monitor your condition. You will need to have blood tests performed to monitor the medication. DRUG INTERACTIONS: * Diet and medications can affect the PT/INR level. * Do not take or discontinue any medication or over the counter medication unless your doctor okays. * Warfarin/Coumadin increases the risk of bleeding. CALL YOUR PHYSICIAN IF: If you notice any signs of increased bleedin. Excessive bruising. 2. Abnormal bleeding from nose or gums. 3. [place], red or dark brown urine. 4. Minor bleeding or bright red blood from the bowel. CALL 911 OR GO TO THE HOSPITAL IF: 1. You have black tarry stools. 2. Sudden dizziness, faintness or weakness. 3. Cold or numbness in arm or leg. 4. Sudden chest pain. 5. Trouble talking or moving one side of body. 6. Coughing or vomiting bright red blood. 7. Severe headache or stomach pain. 8. Serious fall or hit to the head. Visit our website at [email or web address] You are going home today. Depending on your insurance coverage, you may be receiving a bill from the hospital for your hospital stay. If you have any question about your bill, please call the Business Office at [phone] or contact us at our web address: [email or web address]. If applicable, I have received my medication information as recommeded by my provider upon discharge. I have read and understand the above discharge instructions. Pt Signature: Date: Time: Witnessed by: Date: Time: Complete the record of communication to the next provider below. These discharge instructions, including discharge medications, is to be faxed to the next provider at the time of the patient's discharge. ____These instructions faxed to next Provider (Provider Name) on (Date) @ (Time) . ____The second provider involved in patient care following discharge has been faxed this information. These instructions faxed to (Provider-Home Health, Physical Therapy, Agency) on (Date) @ (Time) . OR ____Patient unable/unwilling to verbalize who the next provider of care will be, instructed patient to take these instructions to next appointment with healthcare provider.
--- NOTE | 2019-10-03 10:16 | NUR ---
PT DISCHARGED WITH INST. W/C TO WAITING ROOM.
== END 2019-10-03 10:13 | disposition home or self-care (01) ==
LOC: ED 15:51 → ED-I 17:26 → ED 17:44 → ED-I 17:45
PROVIDERS: Family Medicine; ADMIT Internal Medicine; ATTEND Internal Medicine
DX: R55 Syncope and collapse (principal); I95.9 Hypotension, unspecified; R00.1 Bradycardia, unspecified; I12.9 Hypertensive chronic kidney disease with stage 1 through stage 4 chronic kidney disease, or unspecified chronic kidney disease; N18.3 Chronic kidney disease, stage 3 (moderate); E03.9 Hypothyroidism, unspecified; E78.5 Hyperlipidemia, unspecified; Z87.891 Personal history of nicotine dependence

== ENCOUNTER 2020-06-20 09:39 | Emergency (ER) | payer MEDICARE, MEDICAID ==
[~2020-06-20] VITALS: Ht 165.1 cm; Wt 74.5 kg
[2020-06-20 10:23] LABS: HEMATOCRIT 41.1 % (37.0-47.0); HEMOGLOBIN 13.4 g/dl (12.0-16.0); IMMATURE GRANULOCYTES 0.2 % (0.0-5.0); MEAN CELL VOLUME 89.2 fL CALC (80.0-100.0); MEAN CORPUSCULAR HGB 29.1 pG CALC (26.0-32.0); MEAN CORPUSCULAR HGB CONC 32.6 g/dL CAL (32.0-36.0); NEUT# 6.28 thou/uL (2.00-7.15); RED BLOOD COUNT 4.61 mill/uL (4.20-5.60); RED CELL DISTRI WIDTH 13.3 % (11.5-15.5)
[2020-06-20 11:22] LABS: ALBUMIN 3.7 g/dL (3.2-5.0); ALKALINE PHOSPHATASE 165 u/l (38-126); ANION GAP 12 (6-22 (CALC)); BILIRUBIN, TOTAL 0.7 mg/dL (0.0-1.4); BUN 17 mg/dL (8-23); BUN/CREATININE RATIO 14 (12-20 (CALC)); CARBON DIOXIDE 26 mmol/l (22-30); CHLORIDE 101 mmol/l (95-108); CREATININE 1.2 mg/dL (0.5-1.0); GFR 45 ML/MIN (>=60 (CALC)); GFR FOR AFR.AMER. 54 ML/MIN (>=60 (CALC)); POTASSIUM 4.1 mmol/l (3.5-5.1); SGOT/AST 31 u/l (9-36); SODIUM 135 mmol/l (137-146); TOTAL PROTEIN 6.6 g/dL (6.3-8.2)
[2020-06-20] MEDS ORDERED: ROBITUSSIN AC10 ML PO (11:25)
[2020-06-20] MEDS ORDERED: ZPAK PO (11:25)
[2020-06-20 11:33] LABS: MYOGLOBIN 90 ng/mL (0 - 62)
[2020-06-20 11:42] VITALS: BP 124/76
== END 2020-06-20 11:46 | disposition home or self-care (01) ==
LOC: ED 09:39
PROVIDERS: Emergency Medicine
DX: J06.9 Acute upper respiratory infection, unspecified (principal); I12.9 Hypertensive chronic kidney disease with stage 1 through stage 4 chronic kidney disease, or unspecified chronic kidney disease; N18.9 Chronic kidney disease, unspecified; E03.9 Hypothyroidism, unspecified; Z20.828 Contact with and (suspected) exposure to other viral communicable diseases

== ENCOUNTER 2023-02-12 12:10 | Emergency (ER) | payer MEDICARE, MEDICAID ==
[~2023-02-12] VITALS: Ht 165.1 cm; Wt 73.2 kg
[~2023-02-12 12:10] MED LIST changes: +LEVOTHYROXIN100 MCG PO; +LEVOTHYROXIN75 MCG PO; +LOPRESSOR25 M1 PO; +LOSARTAN POTASS50 MG PO; +OMEPRAZOLE DR40 MG PO; +ROBITUSSIN AC10 ML PO; +ZPAK PO
[2023-02-12 12:22] VITALS: BP 171/101
[2023-02-12 12:26] VITALS: BP 134/93
[2023-02-12 12:30] VITALS: BP 136/86
[2023-02-12 12:46] LABS: BASO% 1.1 % (0-3); EOS% 1.2 % (0-8); HEMATOCRIT 42.1 % (37.0-47.0); HEMOGLOBIN 13.4 g/dl (12.0-16.0); IMMATURE GRANULOCYTES 0.1 % (0.0-5.0); MEAN CELL VOLUME 92.1 fL CALC (80.0-100.0); MEAN CORPUSCULAR HGB 29.3 pG CALC (26.0-32.0); MEAN CORPUSCULAR HGB CONC 31.8 g/dL CAL (32.0-36.0); NEUT# 4.81 thou/uL (2.00-7.15); NEUT% 59.6 % (42-76); RED BLOOD COUNT 4.57 mill/uL (4.20-5.60)
[2023-02-12 12:47] LABS: URINE BILIRUBIN - DIPSTICK NEGATIVE (NEGATIVE); URINE BLOOD DIPSTICK NEGATIVE (NEGATIVE); URINE COLOR YELLOW; URINE GLUCOSE - DIPSTICK NEGATIVE (NEGATIVE); URINE KETONE NEGATIVE (NEGATIVE); URINE LEUK ESTERASE MODERATE (NEGATIVE); URINE NITRITE - DIPSTICK NEGATIVE (Negative); URINE PH 5.5 (4.5-8.0); URINE PROTEIN - DIPSTICK NEGATIVE (NEG-TRACE); URINE SPECIFIC GRAVITY 1.025; URINE UROBILINOGEN - DIPSTICK 0.2 E.U./dL (0.2)
[2023-02-12 12:57] LABS: ALKALINE PHOSPHATASE 114 u/l (38-126); BILIRUBIN, TOTAL 0.5 mg/dL (0.02-1.3); BUN 20 mg/dL (8-23); BUN/CREATININE RATIO 23 (12-20 (CALC)); CHLORIDE 108 mmol/l (95-108); CREATININE 0.9 mg/dL (0.5-1.0); GFR FOR AFR.AMER. > 60 ML/MIN (>=60 (CALC)); GFR OTHER RACES > 60 ML/MIN (>=60 (CALC)); LIPASE 216 u/l (23-300); POTASSIUM 4.4 mmol/l (3.5-5.1); SGOT/AST 31 u/l (9-36); SODIUM 138 mmol/l (137-146); TOTAL PROTEIN 6.6 g/dL (6.3-8.2)
[2023-02-12 12:58] LABS: URINE RENAL EPITHELIAL CELLS RARE hpf; URINE SQUAMOUS EPITHELIAL CELL MANY EPI/hpf (0-FEW)
[2023-02-12 12:59] LABS: ANION GAP 13 (6-22 (CALC)); CARBON DIOXIDE 21 mmol/l (22-30)
[2023-02-12] MEDS ORDERED: OMNI-PAC300 MG PO (14:18)
[2023-02-12 17:16] VITALS: BP 136/86
== END 2023-02-12 17:21 | disposition home or self-care (01) ==
LOC: ED 12:10
PROVIDERS: Family Medicine
DX: N39.0 Urinary tract infection, site not specified (principal); I12.9 Hypertensive chronic kidney disease with stage 1 through stage 4 chronic kidney disease, or unspecified chronic kidney disease; N18.9 Chronic kidney disease, unspecified; E78.00 Pure hypercholesterolemia, unspecified; E03.9 Hypothyroidism, unspecified; K21.9 Gastro-esophageal reflux disease without esophagitis
CPT/HCPCS: Q9967

== ENCOUNTER 2023-04-07 09:45 | Emergency (ER) | payer MEDICARE, MEDICAID ==
[2023-04-07] VITALS (11 sets, daily range): BP systolic 103–164; BP diastolic 69–89
[~2023-04-07] VITALS: Ht 170.2 cm; Wt 71.2 kg
[~2023-04-07 09:45] MED LIST changes: +OMNI-PAC300 MG PO
[2023-04-07] MEDS ORDERED: IBUPROFEN600 MG PO (11:57)
== END 2023-04-07 12:18 | disposition home or self-care (01) ==
LOC: ED 09:45
PROC: 2W3EX1Z Immobilization of Right Hand using Splint (ICD-10-PCS; principal; 2023-04-07)
DX: S62.346A Nondisplaced fracture of base of fifth metacarpal bone, right hand, initial encounter for closed fracture (principal); I12.9 Hypertensive chronic kidney disease with stage 1 through stage 4 chronic kidney disease, or unspecified chronic kidney disease; N18.9 Chronic kidney disease, unspecified; E03.9 Hypothyroidism, unspecified; E78.00 Pure hypercholesterolemia, unspecified; W01.0XXA Fall on same level from slipping, tripping and stumbling without subsequent striking against object, initial encounter; Y92.009 Unspecified place in unspecified non-institutional (private) residence as the place of occurrence of the external cause